=== PATIENT | female | born 1940 | race Caucasian/White ===

== ENCOUNTER → 2021-03-09 | Outpatient (CLI) | payer MEDICARE, OTHER | LOC: HEART 5 08:49 | DX: I20.9 Angina pectoris, unspecified (principal); R06.02 Shortness of breath; R94.39 Abnormal result of other cardiovascular function study; I51.7 Cardiomegaly | CPT/HCPCS: 78452; 93306; A9502; J2785 ==

== ENCOUNTER 2021-07-25 18:59 | Emergency (ER) | payer MEDICARE, OTHER ==
[2021-07-25 19:56] LABS: HEMOGLOBIN 12.7 gm/dl (12.3-15.3); RED BLOOD COUNT 3.95 M/UL (4.00-5.10)
[2021-07-25 20:09] LABS: BUN/CREATININE RATIO 13 (0-10)
[2021-07-25] MEDS ORDERED: PROAIR DIGIHAL90 MCG INH (22:16)
[2021-07-25] MEDS ORDERED: ZOFRAN ODT 4 MG4 MG GT (22:16)
== END 2021-07-25 22:23 | disposition home or self-care (01) ==
LOC: ER1 18:59
PROVIDERS: Emergency Medicine
DX: U07.1 COVID-19 (principal); I10 Essential (primary) hypertension
CPT/HCPCS: 0240U; 71045; 80053; 82550; 82553; 83874; 84484; 85025; 87081; 87880; 93005; 96374; 99284; J2405